=== PATIENT | male | born 1930 | race Caucasian/White ===

== ENCOUNTER 2017-01-26 11:09 | Emergency (ER) | payer OTHER ==
[~2017-01-26] VITALS: Ht 165.1 cm; Wt 67.9 kg
[~2017-01-26 11:09] MED LIST: AMLO-114 PO; AMPI500C9 IV; BIMA0.01 OPB; CHOL1000 PO; INSUINJ12 SC; INSUINJ14 SC; TMPOPS2510 OPB
[2017-01-26 11:14] VITALS: TEMP 37; Ht 165.1 cm; Wt 67.9 kg
--- NOTE | 2017-01-26 11:58 | EMERGENCY ROOM VISIT NOTE ---
History Report prepared by Susie: Noy Schrader Under the Supervision of: Dr. hSun Ureña D.O. First contact with patient: 11:40 Chief Complaint: NOSE BLEED (MINOR) Stated Complaint: NOSEBLEED History of Present Illness The patient is a 86 year old male who presents to the Emergency Room with complaints of an episode of resolved nose bleeding beginning 2 hours ago. 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 The patient's notes that the patient usually has low platelets and states that when this happened before he was sent to [facility]. The patient complains of generalized fatigue for the last week. He denies any fever, chills , headache, nausea, vomiting. He notes that he did not take his medications this morning. The patient notes a history of thrombocytopenia and reports that he got a rhino rocket last time he was here. Source of History: patient, spouse/significant other Onset: 2 hours ago Position: nose Quality: other (bleed) Timing: other (episode) Associated Symptoms: No chills, No fevers, No headache, No nausea, No vomiting Note: The patient complains of generalized fatigue for the last week. Review of Systems See above for pertinent positives & negatives. A total of 10 systems reviewed and were otherwise negative. Past Medical & Surgical Medical Problems: (1) CKD (chronic kidney disease), stage III (2) DM (diabetes mellitus) (3) Esophageal Reflux (4) Hypertension Nos (5) Osteoarthritis (6) Pancytopenia (7) Spinal stenosis (8) Steatosis of liver Surgical Problems: (1) Cataract Nos (2) History of appendectomy Family History Cancer Diabetes mellitus MOTHER BROTHER BROTHER BROTHER Social History Smoking Status: Never Smoker Alcohol Use: none Drug Use: none Marital Status: Housing Status: assisted living Occupation Status: employed Current/Historical Medications Scheduled Amlodipine (Norvasc), 10 MG PO QAM Bimatoprost (Lumigan), 1 DROP OPB HS Cholecalciferol (Vitamin D3), 1 TAB PO QAM Insulin Aspart (Novolog Flexpen), 1 DOSE SC AC Insulin Detemir (Levemir), 8 UNITS SC HS Timolol Maleate (Timolol Maleate), 1 DROP OPB BID Scheduled PRN Mupirocin (Bactroban 2% Oint), 1 APPLN EXT BID PRN for DRYNESS Allergies Coded Allergies: Ibuprofen (Verified Allergy, Mild, rash, 01/26/17) Scopolamine (Verified Adverse Reaction, Severe, CONFUSION AND COMBATIVE FOR 48 HOURS, 01/26/17) Physical Exam Vital Signs Date Time Temp Pulse Resp B/P Pulse Ox O2 Delivery O2 Flow Rate FiO2 01/26/17 12:18 68 01/26/17 12:15 63 11 156/62 96 Room Air 01/26/17 11:14 37.0 75 18 127/66 95 Room Air Physical Exam GENERAL: Patient is well appearing and in no acute distress. HEENT: No acute trauma, normocephalic atraumatic, mucous membranes moist, area in right naris against the septal wall had been bleeding, no active oozing at this time, no scleral icterus. NECK: No stridor, no adenopathy, no meningismus, trachea is midline. LUNGS: No dyspnea. Clear to auscultation and equal bilaterally. No wheeze, no rhonchi. HEART: Regular rate and rhythm. No murmurs, rubs, gallops appreciated. ABDOMEN: Soft, nontender, bowel sounds positive, no masses appreciated, no peritonitis. BACK: No midline tenderness, no CVA tenderness EXTREMITIES: Normal motion all extremities, no cyanosis, no edema. NEUROLOGIC: Alert and oriented, no acute motor or sensory deficits, no focal weakness, cranial nerves grossly intact. SKIN: No rash, no jaundice, no diaphoresis. Medical Decision & Procedures Laboratory Results 01/26/17 12:05 Red Blood Count 3.82, Mean Corpuscular Volume 96.9, Mean Corpuscular Hemoglobin 32.2, Mean Corpuscular Hemoglobin Concent 33.2 01/26/17 12:05 Test 01/26/17 12:05 White Blood Count 2.72 K/uL (4.8-10.8) Red Blood Count 3.82 M/uL (4.7-6.1) Hemoglobin 12.3 g/dL (14.0-18.0) Hematocrit 37.0 % (42-52) Mean Corpuscular Volume 96.9 fL (80-100) Mean Corpuscular Hemoglobin 32.2 pg (25-34) Mean Corpuscular Hemoglobin Concent 33.2 g/dl (32-36) Platelet Count 22 K/uL (130-400) RDW Standard Deviation 63.6 fL (36.4-46.3) RDW Coefficient of Variation 18.0 % (11.5-14.5) Prothrombin Time 11.5 SECONDS (9.0-12.0) Prothromb Time International Ratio 1.1 (0.9-1.1) Activated Partial Thromboplast Time 28.5 SECONDS (21.0-31.0) Partial Thromboplastin Ratio 1.1 Anion Gap 10.0 mmol/L (3-11) Est Creatinine Clear Calc Drug Dose 18.1 ml/min Estimated GFR () 24.9 Estimated GFR (Non- 21.5 BUN/Creatinine Ratio 15.2 (10-20) Calcium Level 8.9 mg/dl (8.5-10.1) Laboratory results as reviewed by me. ECG Indication: other (nose bleed) Rate (beats per minute): 65 Rhythm: normal sinus Findings: 1st degree AV block, other (normal axis) ED Course 1140: The patient was evaluated in room C4. A complete history and physical exam was performed. 1300: Norvasc Tab 5mg PO. 1303: I reevaluated and updated the patient. 1337: Reevaluated the patient. Discussed results and discharge instructions: He verbalized understanding and agreement. The patient is ready for discharge. Medical Decision Differential diagnoses include anemia, thrombocytopenia, trauma, pancytopenia. Patient is an 86-year-old male with a significant past medical history for pancytopenia and profound thrombocytopenia who reports his platelet level is routinely below 30,000 platelets who presents today after an episode of epistaxis which she was unable to control was started approximately 10 AM. He was seen in the ED via epistaxis was actually under control, his blood pressure was mildly elevated, he had not taken his morning medications. A clamp was placed and left in place for over 30 minutes. 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 Advised patient to humidify his house as well as use bacitracin ointment to moisturize the nasal cavities. He only uses Afrin when he experiences epistaxis. Review of his CBC is unremarkable and his platelets were 22,000 today which is near his baseline. Patient has chronic renal insufficiency his creatinine was 2.6 which is also near his baseline. Thighs to him to follow-up with an ear nose and throat surgeon locally as he was last seen by an ENT in [facility] [address]. Patient will be discharged home in improved stable condition. Impression Primary Impression: Epistaxis Additional Impressions: Thrombocytopenia Chronic renal disease Hypertension Nos Scribe Attestation The scribe's documentation has been prepared under my direction and personally reviewed by me in its entirety. I confirm that the note above accurately reflects all work, treatment, procedures, and medical decision making performed by me. Departure Information Dispostion Home / Self-Care Prescriptions Mupirocin (Bactroban 2% Oint) 66 Appln/22 Gm Oint 1 APPLN EXT BID Y for DRYNESS, #1 TUBE Prov: Shun Ureña, D.O. 01/26/17 Referrals León Braun M.D. (PCP) Joseph Castrejon M.D. Call for routine follow-up. Forms HOME CARE DOCUMENTATION FORM, IMPORTANT VISIT INFORMATION, WORK / SCHOOL INSTRUCTIONS Patient Instructions ED Nosebleed, My [facility] [place] [facility] Problem Qualifiers
[2017-01-26] MEDS ORDERED: NVLGIPEN SC (12:23)
[2017-01-26] MEDS ORDERED: LVMI SC (12:23)
[2017-01-26 12:34] LABS: INR 1.1 (0.9-1.1); PARTIAL THROMBOPLASTIN RATIO 1.1; PROTHROMBIN TIME (PATIENT) 11.5 SECONDS (9.0-12.0)
[2017-01-26 12:39] LABS: BUN/CREATININE RATIO 15.2 (10-20); CALCIUM 8.9 mg/dl (8.5-10.1); CREATININE 2.6 mg/dl (0.60-1.40)
[2017-01-26 12:56] LABS: MEAN CELL VOLUME 96.9 fL (80-100); MEAN CORPUSCULAR HEMOGLOBIN 32.2 pg (25-34); MEAN CORPUSCULAR HGB CONC 33.2 g/dl (32-36); PLATELET COUNT 22 K/uL (130-400); RED BLOOD COUNT 3.82 M/uL (4.7-6.1); WHITE BLOOD COUNT 2.72 K/uL (4.8-10.8)
[2017-01-26] MEDS ORDERED: AMLODIPINE BESYLATE 5 MG TAB PO ONE (13:00)
[2017-01-26] MEDS ORDERED: BCTROWC EXT (13:25)
[2017-01-26 14:10] LABS: ANISOCYTOSIS PRESENT; COMPLETE YES; LYMPH ABS # 0.82 K/uL (1.2-3.4); LYMPHOCYTE % 30.2 %; META ABS # 0.05 K/uL (0-0); METAMYELOCYTE % 1.7 %; MYELOCYTE % 0.9 %; NEUTROPHILS % 38.8 %; PLT ESTIMATE SIGNIFIC DECREASED; POIKILOCYTOSIS PRESENT
[2017-01-26 14:15] VITALS: BP 158/71; PULSE 64; O2SAT 97
== END 2017-01-26 14:45 | disposition home or self-care (01) ==
LOC: C.EDB 11:10 → C.EDC 14:45
DX: R04.0 Epistaxis (principal); D69.6 Thrombocytopenia, unspecified; N18.9 Chronic kidney disease, unspecified; I12.9 Hypertensive chronic kidney disease with stage 1 through stage 4 chronic kidney disease, or unspecified chronic kidney disease; E11.9 Type 2 diabetes mellitus without complications; K21.9 Gastro-esophageal reflux disease without esophagitis; M19.90 Unspecified osteoarthritis, unspecified site; M48.00 Spinal stenosis, site unspecified; K76.0 Fatty (change of) liver, not elsewhere classified; D61.818 Other pancytopenia; Z80.9 Family history of malignant neoplasm, unspecified; Z83.3 Family history of diabetes mellitus; Z79.4 Long term (current) use of insulin; Z79.899 Other long term (current) drug therapy

== ENCOUNTER 2017-10-19 00:09 | Emergency (ER) | payer OTHER ==
[~2017-10-19] VITALS: Ht 166.4 cm; Wt 67.8 kg
[~2017-10-19 00:09] MED LIST changes: -AMPI500C9 IV; -INSUINJ12 SC; -INSUINJ14 SC; +LVMI SC; +NVLGIPEN SC
[2017-10-19 00:20] VITALS: TEMP 36.7; Ht 166.4 cm; Wt 67.8 kg
[2017-10-19] MEDS ORDERED: OXYMETAZOLINE HCL 0.05% NA SPR 15 ML BTL ONE (00:45)
--- NOTE | 2017-10-19 01:03 | EMERGENCY ROOM VISIT NOTE ---
History Report prepared by Susie: Alex Hammond Under the Supervision of: Dr. Jose Bonner M.D. First contact with patient: 00:33 Chief Complaint: OTHER COMPLAINT Stated Complaint: BLEEDING IN RIGHT EAR WON'T STOP X 5HRS History of Present Illness The patient is a 87 year old male who presents to the Emergency Room with complaints of constant bleeding from his right ear starting 5 hours ago, and he states that it has been a constant drip. He states that he is unsure how it started, and he does not remember scratching it. The patient notes that he put anti-septic on it as well as Afrin. He denies any light headedness or nose bleeds. The patient states that he gets blood work done every week, and he has low blood platelets. He notes that he has never bled from his ear in the past. Source of History: patient Onset: five hours ago Position: ear (right) Quality: other (bleeding) Timing: constant Note: Denies any nose bleeds or light headedness. Review of Systems See HPI for pertinent positives and negatives. A total of ten systems were reviewed and were otherwise negative. Past Medical & Surgical Medical Problems: (1) CKD (chronic kidney disease), stage III (2) DM (diabetes mellitus) (3) Esophageal Reflux (4) Hypertension Nos (5) Osteoarthritis (6) Pancytopenia (7) Spinal stenosis (8) Steatosis of liver Surgical Problems: (1) Cataract Nos (2) History of appendectomy Family History Cancer Diabetes mellitus MOTHER BROTHER BROTHER BROTHER Social History Smoking Status: Never Smoker Alcohol Use: none Drug Use: none Marital Status: Housing Status: assisted living Occupation Status: employed Current/Historical Medications Scheduled Amlodipine Besylate (Amlodipine Besylate), 5 MG PO BID Bimatoprost (Lumigan), 1 DROP OPB HS Cholecalciferol (Vitamin D3), 1 TAB PO QAM Insulin Aspart (Novolog Flexpen), 1 DOSE SC AC Insulin Detemir (Levemir), 8 UNITS SC HS Timolol Maleate (Timolol Maleate), 1 DROP OPB BID Allergies Coded Allergies: Ibuprofen (Verified Allergy, Mild, rash, 10/19/17) Scopolamine (Verified Adverse Reaction, Severe, CONFUSION AND COMBATIVE FOR 48 HOURS, 10/19/17) Physical Exam Vital Signs Date Time Temp Pulse Resp B/P (MAP) Pulse Ox O2 Delivery O2 Flow Rate FiO2 10/19/17 04:28 71 20 132/66 96 Room Air 10/19/17 03:38 62 18 135/62 96 Room Air 10/19/17 01:32 71 18 117/53 96 Room Air 10/19/17 00:20 36.7 71 18 131/63 97 Room Air Physical Exam GENERAL: Awake, alert, well-appearing, in no distress HENT: Granulomatous growth in the right EAC with small amount of bloody ooze. No gross hemorrhage. TM is clear. Normocephalic, atraumatic. Oropharynx unremarkable. EYES: Normal conjunctiva. Sclera non-icteric. NECK: Supple. No nuchal rigidity. FROM. No JVD. RESPIRATORY: Clear to auscultation. CARDIAC: Regular rate, normal rhythm. Extremities warm and well perfused. Pulses equal. ABDOMEN: Soft, non-distended. No tenderness to palpation. No rebound or guarding. No masses. RECTAL: Deferred. MUSCULOSKELETAL: Chest examination reveals no tenderness. The back is symmetrical on inspection without obvious abnormality. There is no CVA tenderness to palpation. No joint edema. LOWER EXTREMITIES: Calves are equal size bilaterally and non-tender. No edema. No discoloration. NEURO: Normal sensorium. No sensory or motor deficits noted. SKIN: No rash or jaundice noted. Medical Decision & Procedures Laboratory Results 10/19/17 01:09 Red Blood Count 2.77, Mean Corpuscular Volume 108.7, Mean Corpuscular Hemoglobin 35.4, Mean Corpuscular Hemoglobin Concent 32.6 10/19/17 01:09 Test 10/19/17 01:09 White Blood Count 2.49 K/uL (4.8-10.8) Red Blood Count 2.77 M/uL (4.7-6.1) Hemoglobin 9.8 g/dL (14.0-18.0) Hematocrit 30.1 % (42-52) Mean Corpuscular Volume 108.7 fL (80-100) Mean Corpuscular Hemoglobin 35.4 pg (25-34) Mean Corpuscular Hemoglobin Concent 32.6 g/dl (32-36) Platelet Count 15 K/uL (130-400) RDW Standard Deviation 69.5 fL (36.4-46.3) RDW Coefficient of Variation 17.8 % (11.5-14.5) Neutrophils % (Manual) 3.4 % Lymphocytes % (Manual) 39.3 % Variant Lymphocytes % (manual) 16.9 % Monocytes % (Manual) 33.7 % Basophils % (Manual) 1.1 % (0-2) Myelocytes % 5.6 % Neutrophils # (Manual) 0.08 K/uL (1.4-6.5) Total Absolute Neutrophils 0.08 K/uL (1.4-6.5) Lymphocytes # (Manual) 0.98 K/uL (1.2-3.4) Absolute Variant Lymphocytes 0.42 K/uL Total Absolute Lymphocytes 1.40 K/uL (1.2-3.4) Monocytes # (Manual) 0.84 K/uL (0.11-0.59) Basophils # (Manual) 0.03 K/uL (0-0.2) Myelocytes # 0.14 K/uL (0-0) Large Platelets 1+ Prothrombin Time 12.2 SECONDS (9.0-12.0) Prothromb Time International Ratio 1.1 (0.9-1.1) Activated Partial Thromboplast Time 28.5 SECONDS (21.0-31.0) Partial Thromboplastin Ratio 1.1 Anion Gap 9.0 mmol/L (3-11) Est Creatinine Clear Calc Drug Dose 18.6 ml/min Estimated GFR () 25.6 Estimated GFR (Non- 22.1 BUN/Creatinine Ratio 13.6 (10-20) Calcium Level 8.9 mg/dl (8.5-10.1) Laboratory results reviewed by me Medications Administered Medications (Trade) Dose Ordered Sig/Yue Route Start Time Stop Time Status Last Admin Dose Admin Oxymetazoline HCl (Afrin 0.05% Nasal Silvis) 1 sprays NOW ONCE NA 10/19/17 00:45 10/19/17 00:47 DC 10/19/17 00:45 1 SPRAYS ED Course 0033: The patient was evaluated in room B4. A complete history and physical exam was performed. 0403: I reevaluated the patient, and he had good hemostasis with Afrin and gauze. I replaced with with an ear wick and Afrin.I discussed results and discharge instructions: he verbalized understanding and agreement. The patient is ready for discharge. Medical Decision I reviewed the patient's past medical history, medications, and the nursing notes as described above. Differential diagnoses include: thrombocytopenia, benign vs. malignant mass. The patient is an 87-year-old man with a past medical history of thrombocytopenia who [facility] from the right ear for the past 5 hours per history of present illness. The patient is well- appearing, afebrile stable vital signs. On exam he has a granulomatous growth in his EAC has a mild amount of bloody ooze but no gross hemorrhage. TM is clear. Labs show the patient has a new relative neutropenia as well as thrombocytopenia to 15 slightly low for patient but is comparable to prior. Otherwise patient was given Afrin with good effect and hemostasis. Earwick with additional Afrin was placed. Plan for prompt outpatient follow-up with the patient's take up operator and ENT specialist. Findings and plan for follow-up reviewed with patient. Patient agreeable and d/c'd per discharge instructions. Medication Reconcilliation Current Medication List: was personally reviewed by me Blood Pressure Screening Patient's blood pressure: Normal blood pressure Impression Primary Impression: Lesion of right external auditory canal Scribe Attestation The scribe's documentation has been prepared under my direction and personally reviewed by me in its entirety. I confirm that the note above accurately reflects all work, treatment, procedures, and medical decision making performed by me. Departure Information Dispostion Home / Self-Care Referrals León Braun M.D. (PCP) Forms HOME CARE DOCUMENTATION FORM, IMPORTANT VISIT INFORMATION, WORK / SCHOOL INSTRUCTIONS Patient Instructions My [facility], Neutropenia, Probs Outer Ear, Thrombocytopenia Additional Instructions Please follow up with your ENT specialist and your take up operator in the next 1-2 days for re-evaluation of your ear lesion and your blood counts, which include low platelets and white blood cells. Return to the emergency department for worsening symptoms as described in the accompanying instructions.
[2017-10-19 01:25] LABS: INR 1.1 (0.9-1.1); PARTIAL THROMBOPLASTIN RATIO 1.1; PROTHROMBIN TIME (PATIENT) 12.2 SECONDS (9.0-12.0)
[2017-10-19] MEDS ORDERED: NRV/5 PO (01:25)
[2017-10-19 01:34] LABS: BUN/CREATININE RATIO 13.6 (10-20); CALCIUM 8.9 mg/dl (8.5-10.1); CREATININE 2.53 mg/dl (0.60-1.40); POTASSIUM 3.5 mmol/L (3.5-5.1)
[2017-10-19 02:06] LABS: HEMATOCRIT 30.1 % (42-52); LARGE PLATELETS 1+; MEAN CELL VOLUME 108.7 fL (80-100); MEAN CORPUSCULAR HEMOGLOBIN 35.4 pg (25-34); MEAN CORPUSCULAR HGB CONC 32.6 g/dl (32-36); PLATELET COUNT 15 K/uL (130-400); RED BLOOD COUNT 2.77 M/uL (4.7-6.1); WHITE BLOOD COUNT 2.49 K/uL (4.8-10.8)
[2017-10-19 02:07] LABS: BASO ABS # 0.03 K/uL (0-0.2); BASOPHIL % 1.1 % (0-2); COMPLETE YES; LYMPH ABS # 0.98 K/uL (1.2-3.4); LYMPHOCYTE % 39.3 %; MYELOCYTE % 5.6 %; NEUTROPHILS % 3.4 %; VARIANT LYM ABS # 0.42 K/uL; VARIANT LYMPHOCYTE % 16.9 %
[2017-10-19 04:28] VITALS: BP 132/66; PULSE 71; O2SAT 96
== END 2017-10-19 04:30 | disposition home or self-care (01) ==
LOC: C.EDB 00:10
DX: H61.891 Other specified disorders of right external ear (principal); I12.9 Hypertensive chronic kidney disease with stage 1 through stage 4 chronic kidney disease, or unspecified chronic kidney disease; E11.22 Type 2 diabetes mellitus with diabetic chronic kidney disease; N18.3 Chronic kidney disease, stage 3 (moderate); K21.9 Gastro-esophageal reflux disease without esophagitis; M19.90 Unspecified osteoarthritis, unspecified site; D61.818 Other pancytopenia; M48.00 Spinal stenosis, site unspecified; K76.0 Fatty (change of) liver, not elsewhere classified; Z79.4 Long term (current) use of insulin; Z83.3 Family history of diabetes mellitus

== ENCOUNTER → 2018-02-16 | Outpatient (CLI) | payer OTHER ==
[~2018-02-16] MED LIST changes: +BIMA0.01 OP; +INSU3INJ3; +INSU70IN2 SC; +LEVO1TAB33; +LVQ250; +NRV/5 PO; +PRT/20 PO
[2018-02-16 12:46] LABS: HEMATOCRIT 25.3 % (42-52); HEMOGLOBIN 8.3 g/dL (14.0-18.0); MEAN CORPUSCULAR HEMOGLOBIN 36.4 pg (25-34); MEAN CORPUSCULAR HGB CONC 32.8 g/dl (32-36); RED CELL DISTRIBUTION WIDTH CV 17.6 % (11.5-14.5); RED CELL DISTRIBUTION WIDTH SD 69.9 fL (36.4-46.3); WHITE BLOOD COUNT 1.72 K/uL (4.8-10.8)
[2018-02-16 12:55] LABS: BLOOD UREA NITROGEN 40 mg/dl (7-18); CALCIUM 8.6 mg/dl (8.5-10.1); CARBON DIOXIDE 25 mmol/L (21-32); CREATININE 2.95 mg/dl (0.60-1.40); GLUCOSE 111 mg/dl (70-99); POTASSIUM 3.7 mmol/L (3.5-5.1); SODIUM 136 mmol/L (136-145)
[2018-02-16 12:56] LABS: PLATELET COUNT 20 K/uL (130-400)
[2018-02-16 12:58] LABS: EOS % 1.2 %; EOS ABS # 0.02 K/uL (0-0.5); IG# 0.04 K/uL (0.00-0.02); LYMPH % 40.1 %; LYMPH ABS # 0.69 K/uL (1.2-3.4); MONO % 55.2 %; MONO ABS # 0.95 K/uL (0.11-0.59); NEUT % 1.2 %; NEUT ABS # 0.02 K/uL (1.4-6.5)
== END | disposition home or self-care (01) ==
LOC: C.LAB 09:44
PROVIDERS: ATTEND Internal Medicine
DX: N18.4 Chronic kidney disease, stage 4 (severe) (principal); D46.9 Myelodysplastic syndrome, unspecified; D64.9 Anemia, unspecified

== ENCOUNTER 2018-03-14 11:58 | Emergency (ER) | payer OTHER ==
[~2018-03-14] VITALS: Ht 165.1 cm; Wt 65.5 kg
[~2018-03-14 11:58] MED LIST changes: -BIMA0.01 OPB; -INSU3INJ3; +INSU3INJ3 SC; -LVMI SC; -LVQ250; -NRV/5 PO; -NVLGIPEN SC; -TMPOPS2510 OPB
[2018-03-14 12:00] VITALS: TEMP 36.7; Ht 165.1 cm; Wt 65.5 kg
[2018-03-14] MEDS ORDERED: PANT40TA2 PO (12:38)
[2018-03-14] MEDS ORDERED: NVLGI/PEN SC (12:38)
[2018-03-14 13:48] LABS: INR 1.2 (0.9-1.1); PTT PATIENT 28.8 SECONDS (21.0-31.0)
[2018-03-14 13:53] LABS: CALCIUM 9.1 mg/dl (8.5-10.1); CREATININE 3.01 mg/dl (0.60-1.40); POTASSIUM 4.2 mmol/L (3.5-5.1)
[2018-03-14 13:56] LABS: HEMOGLOBIN 11.4 g/dL (14.0-18.0); MEAN CELL VOLUME 108.4 fL (80-100); MEAN CORPUSCULAR HEMOGLOBIN 34.3 pg (25-34); MEAN CORPUSCULAR HGB CONC 31.7 g/dl (32-36); PLATELET COUNT 17 K/uL (130-400); RED CELL DISTRIBUTION WIDTH CV 19.8 % (11.5-14.5); RED CELL DISTRIBUTION WIDTH SD 78.1 fL (36.4-46.3); TOTAL PROTEIN 7.2 gm/dl (6.4-8.2); WHITE BLOOD COUNT 1.46 K/uL (4.8-10.8)
--- NOTE | 2018-03-14 14:16 | EMERGENCY ROOM VISIT NOTE ---
History Report prepared by Susie: Lima Fairchild Under the Supervision of: Dr. Maite Key M.D. First contact with patient: 12:21 Chief Complaint: LEG PAIN,LEG INJURY Stated Complaint: REDNESS AND PAIN IN LEGS History of Present Illness The patient is a 87 year old male who presents to the Emergency Room with complaints of worsening right lower extremity pain for the past 3 days. The patient noticed erythema and swelling 3 days ago. He has a history of chronic thrombocytopenia. He had a platelet transfusion on Wednesday. He was sent to lab today for blood work. While there, he told the nurses about his leg. They called his PCP and advised him to come to the ED for further evaluation. The patient rates his current pain as a 6/10 in severity. He denies any fevers or other symptoms. He denies any personal history of clots. He denies recent trauma , injury, or recent long trips. Source of History: patient Onset: 3 days ago Position: leg (right) Symptom Intensity: 6/10 Quality: other (erythema/swelling) Timing: worsening Associated Symptoms: No fevers Review of Systems See HPI for pertinent positives & negatives. A total of 10 systems reviewed and were otherwise negative. Past Medical & Surgical Medical Problems: (1) CKD (chronic kidney disease), stage III (2) DM (diabetes mellitus) (3) Esophageal Reflux (4) Hypertension Nos (5) Osteoarthritis (6) Pancytopenia (7) Spinal stenosis (8) Steatosis of liver Surgical Problems: (1) Cataract Nos (2) History of appendectomy Family History Cancer Diabetes mellitus MOTHER BROTHER BROTHER BROTHER Social History Smoking Status: Never Smoker Alcohol Use: none Drug Use: none Marital Status: Housing Status: assisted living Occupation Status: employed Current/Historical Medications Scheduled Amlodipine (Norvasc), 10 MG PO DAILY Bimatoprost (Lumigan), 1 DROPS OP BID Cephalexin Monohydrate (Keflex), 250 MG PO BID Doxycycline Monohydrate (Monodox), 100 MG PO BID Insulin Detemir (Levemir Flextouch), 8 UNITS SC HS Pantoprazole (Pantoprazole Sodium), 40 MG PO DAILY Scheduled PRN Insulin Aspart (Novolog Flexpen), 1 DOSE SC SCHS PRN for SLIDING SCALE Allergies Coded Allergies: Ibuprofen (Verified Allergy, Mild, rash, 03/14/18) Scopolamine (Verified Adverse Reaction, Severe, CONFUSION AND COMBATIVE FOR 48 HOURS, 03/14/18) Physical Exam Vital Signs Date Time Temp Pulse Resp B/P (MAP) Pulse Ox O2 Delivery O2 Flow Rate FiO2 03/14/18 16:00 75 16 137/76 98 03/14/18 15:00 72 20 142/76 98 Room Air 03/14/18 12:00 36.7 69 20 135/60 98 Room Air Physical Exam Vital signs reviewed. General: Well-appearing elderly male, in no significant distress. HEENT: No scleral icterus, PERRLA, neck supple. Atraumatic. Cardiovascular: Regular rate and rhythm, no extra sounds. Pulmonary: Clear to auscultation bilaterally, normal work of breathing. Abdomen: Soft, nontender, nondistended, positive bowel sounds. Musculoskeletal: Mild erythema to the distal right lower extremity from the mid- calf distally, slight swelling when compared to the left lower extremity. No appreciable trauma or wound. Neurologic: Patient awake alert and oriented x 3 Skin: Warm, dry, right lower extremity as above. Erythema to the distal right lower extremity, blanchable. No petechial lesion. Medical Decision & Procedures ER Provider Diagnostic Interpretation: Radiology results as stated below per my review and radiologist interpretation: ULTRASOUND VENOUS DOPPLER LWR EXT BILA CLINICAL HISTORY: Lower extremity pain COMPARISON STUDY: No previous studies for comparison. FINDINGS: Real-time and color flow Doppler imaging were performed. Flow was seen within the femoral, popliteal and calf veins with no intraluminal thrombus demonstrated. The saphenous vein is patent. IMPRESSION: No evidence of lower extremity DVT. Electronically signed by: Cedric Holder M.D. 03/14/2018 2:20 PM Dictated Date/Time: 03/14/2018 2:19 PM Laboratory Results 03/14/18 13:15 Red Blood Count 3.32, Mean Corpuscular Volume 108.4, Mean Corpuscular Hemoglobin 34.3, Mean Corpuscular Hemoglobin Concent 31.7 03/14/18 13:15 Test 03/14/18 13:15 White Blood Count 1.46 K/uL (4.8-10.8) Red Blood Count 3.32 M/uL (4.7-6.1) Hemoglobin 11.4 g/dL (14.0-18.0) Hematocrit 36.0 % (42-52) Mean Corpuscular Volume 108.4 fL (80-100) Mean Corpuscular Hemoglobin 34.3 pg (25-34) Mean Corpuscular Hemoglobin Concent 31.7 g/dl (32-36) Platelet Count 17 K/uL (130-400) RDW Standard Deviation 78.1 fL (36.4-46.3) RDW Coefficient of Variation 19.8 % (11.5-14.5) Neutrophils % (Manual) 2.7 % Lymphocytes % (Manual) 34.5 % Variant Lymphocytes % (manual) 11.5 % Monocytes % (Manual) 47.7 % Eosinophils % (Manual) 0.9 % Basophils % (Manual) 0.9 % (0-2) Myelocytes % 1.8 % Neutrophils # (Manual) 0.04 K/uL (1.4-6.5) Total Absolute Neutrophils 0.04 K/uL (1.4-6.5) Lymphocytes # (Manual) 0.50 K/uL (1.2-3.4) Absolute Variant Lymphocytes 0.17 K/uL Total Absolute Lymphocytes 0.67 K/uL (1.2-3.4) Monocytes # (Manual) 0.70 K/uL (0.11-0.59) Eosinophils # (Manual) 0.01 K/uL (0-0.5) Basophils # (Manual) 0.01 K/uL (0-0.2) Myelocytes # 0.03 K/uL (0-0) Platelet Estimate SIGNIFIC DECREASED Giant Platelets 3+ Anisocytosis PRESENT Macrocytosis PRESENT Prothrombin Time 12.6 SECONDS (9.0-12.0) Prothromb Time International Ratio 1.2 (0.9-1.1) Activated Partial Thromboplast Time 28.8 SECONDS (21.0-31.0) Partial Thromboplastin Ratio 1.1 Anion Gap 6.0 mmol/L (3-11) Est Creatinine Clear Calc Drug Dose 15.3 ml/min Estimated GFR () 20.8 Estimated GFR (Non- 17.9 BUN/Creatinine Ratio 13.6 (10-20) Calcium Level 9.1 mg/dl (8.5-10.1) Total Bilirubin 1.0 mg/dl (0.2-1) Direct Bilirubin 0.3 mg/dl (0-0.2) Aspartate Amino Transf (AST/SGOT) 38 U/L (15-37) Alanine Aminotransferase (ALT/SGPT) 52 U/L (12-78) Alkaline Phosphatase 89 U/L (45-117) Total Protein 7.2 gm/dl (6.4-8.2) Albumin 4.0 gm/dl (3.4-5.0) Laboratory results per my review. Medications Administered Medications (Trade) Dose Ordered Sig/Yue Route Start Time Stop Time Status Last Admin Dose Admin Doxycycline Hyclate (Vibramycin Cap) 100 mg ONE ONCE PO 03/14/18 14:45 03/14/18 14:46 DC 03/14/18 15:02 100 MG Cephalexin Monohydrate (Keflex Cap) 250 mg NOW ONCE PO 03/14/18 14:45 03/14/18 14:46 DC 03/14/18 15:02 250 MG Ceftriaxone Sodium (Rocephin Inj) 1 gm NOW STAT IV 03/14/18 15:12 03/14/18 15:13 DC 03/14/18 15:19 1 GM ED Course 1221: Past medical records reviewed. The patient was evaluated in room B8. A complete history and physical examination was performed. 1445: Keflex 250 mg PO, Vibramycin 100 mg PO 1507: I reassessed the patient at this time. He is feeling better and resting comfortably. I discussed the results and treatment plan with the patient and his daughter. I answered all pertaining questions that they had. They expressed understanding and verbalized agreement. The patient will be discharged home after receiving IV antibiotics. 1512: Rocephin 1 gm IV Medical Decision Differential diagnosis: Etiologies such as DVT, musculoskeletal, infection, joint effusion, trauma, lymphedema, idiopathic, CHF, as well as others were entertained. This patient was evaluated and appeared to be in no significant distress. The patient is pancytopenic chronically. Laboratory work reveals a slight worsening of the platelet count to 17,000, anemia is fairly stable and the neutropenia is chronic. The patient is afebrile with stable vital signs. He has a mild erythema of the right lower extremity. DVT studies are negative bilaterally. After consultation with the clinical pharmacist, the patient will be placed on doxycycline 100 mg twice daily and Keflex 250 mg twice daily, accounting for his chronic renal disease. Patient was given 1 g of IV ceftriaxone in the emergency department. Blood cultures are pending. I discussed the situation with the patient, his and daughter. They will keep a close eye on the leg and erythema. If the erythema appears to be spreading or the leg is more swollen, they will return to ED immediately. They have assured close follow-up with the oncologist as well as a PCP. They will return to the ER for worsening of symptoms or any medical concerns. Medication Reconcilliation Current Medication List: was personally reviewed by me Blood Pressure Screening Patient's blood pressure: Elevated blood pressure Blood pressure disposition: Elevated BP felt to be situational Impression Primary Impression: Cellulitis of leg, right Additional Impressions: Chronic neutropenia Thrombocytopenia Scribe Attestation The scribe's documentation has been prepared under my direction and personally reviewed by me in its entirety. I confirm that the note above accurately reflects all work, treatment, procedures, and medical decision making performed by me. Departure Information Dispostion Home / Self-Care Prescriptions Cephalexin Monohydrate (Keflex) 250 Mg Cap 250 MG PO BID for 7 Days, #14 CAP Prov: Maite Key M.D. 03/14/18 Doxycycline Monohydrate (Monodox) 100 Mg Cap 100 MG PO BID for 7 Days, #14 CAP Prov: Maite Key M.D. 03/14/18 Referrals León Braun M.D. (PCP) Forms HOME CARE DOCUMENTATION FORM, IMPORTANT VISIT INFORMATION Patient Instructions My [facility] Additional Instructions Diagnosis: Cellulitis, thrombocytopenia, neutropenia Doxycycline 100 mg twice daily for 7 days Keflex 250 mg twice daily for 7 days. Your laboratory work reveals a platelet count of 17,000. These contact your broach grinder tomorrow for reevaluation. Follow-up with your primary care physician within the next 24-48 hours for reevaluation. Return to the emergency department for fevers, worsening of symptoms or any medical concerns. Problem Qualifiers
--- NOTE | 2018-03-14 14:21 | DIAGNOSTIC IMAGING REPORT ---
ULTRASOUND VENOUS DOPPLER LWR EXT BILA CLINICAL HISTORY: Lower extremity pain COMPARISON STUDY: No previous studies for comparison. FINDINGS: Real-time and color flow Doppler imaging were performed. Flow was seen within the femoral, popliteal and calf veins with no intraluminal thrombus demonstrated. The saphenous vein is patent. IMPRESSION: No evidence of lower extremity DVT. Electronically signed by: Cedric Holder M.D. 03/14/2018 2:20 PM Dictated Date/Time: 03/14/2018 2:19 PM
[2018-03-14] MEDS ORDERED: CEPHALEXIN MONOHYDRATE 250 MG CAP PO ONE (14:45)
[2018-03-14] MEDS ORDERED: DOXYCYCLINE HYCLATE 100 MG CAP PO ONE (14:45)
[2018-03-14] MEDS ORDERED: KFL/250 PO (14:56)
[2018-03-14] MEDS ORDERED: DOXY100C76 PO (14:56)
[2018-03-14] MEDS ORDERED: CEFTRIAXONE SOD INJ 1 GM ADDVIAL IV STA (15:12)
[2018-03-14 16:00] VITALS: BP 137/76; PULSE 75; O2SAT 98
== END 2018-03-14 16:00 | disposition home or self-care (01) ==
LOC: C.EDB 11:59
DX: L03.115 Cellulitis of right lower limb (principal); D70.9 Neutropenia, unspecified; D69.6 Thrombocytopenia, unspecified; N18.3 Chronic kidney disease, stage 3 (moderate); E11.9 Type 2 diabetes mellitus without complications; K21.9 Gastro-esophageal reflux disease without esophagitis; I10 Essential (primary) hypertension; M19.90 Unspecified osteoarthritis, unspecified site; Z79.899 Other long term (current) drug therapy; Z88.8 Allergy status to other drugs, medicaments and biological substances